=== PATIENT | female | born 1955 | race Caucasian/White ===

== ENCOUNTER → 2016-06-13 | Outpatient (CLI) | payer OTHER ==
[~2016-06-13] MED LIST: ASMANEX TW30 INHALAT IH; BAL B-1001 EACH PO; BENTYL10 MG PO; CEFDINIR300 MG PO; CHERATUSSIN AC473 ML PO; CIPRO500 MG PO; FLAGYL500 MG PO; K-DUR20 MEQ PO; MAGIC MOUTHWASH1 ML MM; MOTRIN600 MG PO; MUCINEX; NAPROSYN500 MG PO; NORCO 5/3251 TABLET PO; PREDNISONE10 M1 PO; PROAIR HFA8.5 GM IH; STRESS B1 EACH PO; SYNTHROID PO; SYNTHROID100 MCG PO; ULTRAM50 MG PO; VALIUM5 MG PO; VENTOLIN HFA18 GM IH; VERAPAMIL HCL120 M1 PO; VERAPAMIL HCL240 M2 PO; ZITHROMAX Z-PA250 MG PO; [UNRECOGNIZED DRUG - REMARK]
== END | disposition home or self-care (01) ==
LOC: CDC 16:05
DX: Z01.810 Encounter for preprocedural cardiovascular examination (principal)
CPT/HCPCS: 93000

== ENCOUNTER → 2016-08-07 | Outpatient (CLI) | payer OTHER | END | disposition home or self-care (01) | LOC: EEG 08:59 | DX: Z72.820 Sleep deprivation (principal) | CPT/HCPCS: 95954 ==

== ENCOUNTER 2017-04-02 18:51 | Emergency (ER) | payer OTHER ==
[~2017-04-02] VITALS: Ht 162.6 cm; Wt 55.7 kg
[2017-04-02 19:26] LABS: HEMATOCRIT 36.8 % (36.0-46.0); HEMOGLOBIN 12.5 G/DL (11.9-15.5); MCH 27.7 PG (29.0-34.0); MCV 81.4 FL (83-99); PLATELET COUNT 221 K/uL (156-360); RBC DIS.WIDTH-CV 12.9 % (11.8-14.6); RBC DIS.WIDTH-SD 38.3 % (39-53); RED BLOOD COUNT 4.52 M/uL (3.80-5.20); WHITE BLOOD COUNT 7.3 K/uL (4.1-10.2)
[2017-04-02 19:37] LABS: CHLORIDE 105 mEq/L (99-109); POTASSIUM 4.1 mEq/L (3.7-5.4); SODIUM 141 mEq/L (136-147)
[2017-04-02 19:39] LABS: GLUCOSE 97 mg/dL (70-99)
[2017-04-02 19:43] LABS: CREATININE 0.7 mg/dL (0.6-1.3); GFR ESTIMATE (CALCULATED) > 59 mL/min/
[2017-04-02 19:44] LABS: UREA NITROGEN (BUN) 12 mg/dL (9-23)
[2017-04-02 19:54] LABS: TROP-I INTERPRETATION NEGATIVE; TROPONIN-I < 0.01 ng/mL (0.0-0.30)
[2017-04-02 22:38] LABS: TROP-I INTERPRETATION NEGATIVE; TROPONIN-I < 0.01 ng/mL (0.0-0.30)
[2017-04-02] MEDS ORDERED: ROBITUSSIN AC,T10 ML PO (22:49)
[2017-04-02] MEDS ORDERED: VENTOLIN HFA18 GM IH (23:00)
[2017-04-02 23:28] VITALS: BP 139/85
== END 2017-04-02 23:30 | disposition home or self-care (01) ==
LOC: EME 18:51
PROVIDERS: Nurse Practitioner Family
DX: J06.9 Acute upper respiratory infection, unspecified (principal); I10 Essential (primary) hypertension; J45.909 Unspecified asthma, uncomplicated; Z85.850 Personal history of malignant neoplasm of thyroid; Z92.3 Personal history of irradiation; Z88.0 Allergy status to penicillin
CPT/HCPCS: 71046; 80048; 84484; 85027; 87651 90; 93005; 99281; 99285

== ENCOUNTER 2017-06-27 10:51 | Emergency (ER) | payer OTHER ==
[~2017-06-27] VITALS: Ht 162.6 cm; Wt 53.0 kg
[~2017-06-27 10:51] MED LIST changes: +ROBITUSSIN AC,T10 ML PO
[2017-06-27] MEDS ORDERED: REGLAN10 MG PO (13:46)
[2017-06-27 14:00] VITALS: BP 121/67
== END 2017-06-27 14:05 | disposition home or self-care (01) ==
LOC: EME 10:51
DX: R51 Headache (principal); I67.1 Cerebral aneurysm, nonruptured; I10 Essential (primary) hypertension; J45.909 Unspecified asthma, uncomplicated; Z85.850 Personal history of malignant neoplasm of thyroid; Z88.0 Allergy status to penicillin
CPT/HCPCS: 70450; 99281; 99285; J1885